=== PATIENT | male | born 1970 | race Caucasian/White ===

== ENCOUNTER 2019-06-11 08:50 | Outpatient (CLI) | payer OTHER, SELFPAY ==
--- NOTE | 2019-06-11 08:59 | XR_ITS ---
WS: [id number] XR cervical spine 3V* [id number] REASON FOR EXAM: UPPER BACK NECK PAIN FINDINGS: The disc spaces and vertebral bodies are normal. The lamina, pedicles, spinous processes, are all normal. The joints of [place] are normal. The odontoid process was normal. XR/XR cervical spine 3V* [id number] IMPRESSION: Normal cervical spine series.
--- NOTE | 2019-06-11 08:59 | XR_ITS ---
WS: [id number] XR thoracic spine 3V* [id number] REASON FOR EXAM: UPPER BACK NECK PAIN FINDINGS: Mild compression deformity of the L1 vertebra. The remaining vertebral bodies and disc spaces are normal. The cervicothoracic junction was normal. The remaining lamina, pedicles, spinous processes are normal. XR/XR thoracic spine 3V* [id number] IMPRESSION: Normal thoracic spine series Mild compression deformity of L1 vertebra.
== END 2019-06-11 08:51 | disposition home or self-care (01) ==
PROVIDERS: Family Provider Family Medicine
DX: M54.6 Pain in thoracic spine (principal); M54.2 Cervicalgia; M48.54XA Collapsed vertebra, not elsewhere classified, thoracic region, initial encounter for fracture
CPT/HCPCS: 72040; 72072

== ENCOUNTER 2019-09-22 10:39 | Day surgery (SDC) | payer OTHER, SELFPAY ==
[2019-09-21 17:16] VITALS: BMI 28.2
[2019-09-22] VITALS (7 sets, daily range): BP systolic 136–153; BP diastolic 84–104; PULSE 67–104; RESP 14–24; TEMP 36.3–36.6; O2SAT 97–100
--- NOTE | 2019-09-22 11:07 | W.PM.OPSUD ---
Surgery/Procedure H&P Update DATE OF PROCEDURE: September 22, 2019 DATE H&P PERFORMED: 09/21/19 H&P UPDATE INFORMATION: I have reviewed H&P completed within last 30 days, I have examined patient prior to procedure and No changes to prior documentation PREOP DIAGNOSIS: Perianal abscess perianal abscess PLANNED PROCEDURE: Operation Date: 09/22/19 12:30 Proposed Procedures p Incision and drainage of perianal abscess 42614/L02.91(Not Applicable) - Milton Milton MD
[2019-09-22] MEDS: sodium chloride 0.9% 1,000 ML 100 ML IV (11:14)
--- NOTE | 2019-09-22 11:18 | P.ANESASSM_ITS ---
Pre-Anesthetic Assessment Pre-Anesthetic Assessment: Height/Weight: Height 1.88 m Weight 99.79 kg Temp Pulse Resp BP Pulse Ox 97.4 F L 104 H 18 140/104 99 09/22/19 10:57 09/22/19 10:57 09/22/19 10:57 09/22/19 10:57 09/22/19 10:57 Preop Diagnosis: Perianal abscess perianal abscess Proposed Procedure: Operation Date: 09/22/19 12:30 Proposed Procedures p Incision and drainage of perianal abscess 57593/L02.91(Not Applicable) - Milton Milton MD Last intake: Intake Last Liquid Date 09/21/19 Last Liquid Time 21:00 Last Solid Date 09/21/19 Last Solid Time 21:00 Social: Social History: Tobacco (2019 quit) and No alcohol Exam: Pre-Anes Outpt Exam: alert, oriented x 3, clear to auscultation bilaterally and regular rate & rhythm Airway: Submandibular: WNL Cervical ROM: WNL MP: 2 Dentition: Other (teeth ok) History/ROS: No significant history except as noted Pulmonary: Pulmonary: None reported CV/HEM: CV/HEM: None reported : : None reported Hepatic: Hepatic: None reported GI: GI: GERD (occ) Metabolic: Metabolic: Hyperlipidemia Musc/skel: Musc/skel: None reported Neuropsych: Neuropsych: None reported Anesthetic Plan: ASA status: 2 Anesthesia: Anesthesia Evaluation, General and MAC Risk of > 500 ml blood loss (7ml/kg in children): No Meds/Allergies Current Medications: Current Medications Generic Name Dose Route Start Last Admin Trade Name Freq PRN Reason Stop Dose Admin Sodium Chloride 1,000 mls @ 100 m ls/hr 09/22/19 08:00 09/22/19 11:14 Sodium Chloride 0.9% IV 09/23/19 07:59 100 mls/hr .Q10H FAVIAN Administration PFSH Anesthesia PFSH: Medical History Hypercholesterolemia Perianal abscess Surgical History H/O circumcision 2004 H/O lithotripsy H/O vasectomy Family History Father Cancer lymphoma Mother Cancer fallopian tubes Grandfather Cancer colon Denies family history of Diabetes CAD (coronary artery disease) Anesthesia complication Bleeding disorder Social History Smoking and tobacco status: never smoked Alcohol intake: never Lives independently: Yes Marital status: Single Current occupational status: employed History of recent travel: Yes (all over [place]) Data Anesthesia Cardiac Studies: No Data to Display
--- NOTE | 2019-09-22 11:40 | PM.OP ---
Operative Report Date of procedure: September 22, 2019 Pre-op Diagnosis: Perianal abscess Post-op diagnosis: same Procedure Done: Incision and drainage of perianal abscess Pathology: wound cultures Surgeon: Milton Milton Anesthesia: General Estimated blood loss (mL): 5 Condition: stable Disposition: PACU Procedure: The patient was taken to the operating room and placed under general anesthesia after IV antibiotic had been administered. The perineum was prepped and draped in a sterile manner. 0.5% Marcaine was infiltrated around the palpable abscess. Using 15 blade a 3 cm incision was made and the abscess cavity measured 4 x 4 cm. Loculations were taken down bluntly. Wound was irrigated saline and packed with quarter inch ribbon gauze and covered with ABDs. The patient was transferred to recovery room in stable condition.
--- NOTE | 2019-09-22 12:25 | SUR.PHASEI ---
1223 PATIENT TO PACU AT THIS TIME FROM OR. ORAL AIRWAY IN PLACE, SPO2 100% ON SIMPLE MASK AT 8L. PATIENT RESTING COMFORTABLE ON BED, NO DISTRESS NOTED.
--- NOTE | 2019-09-22 12:27 | SUR.PHASEI ---
1225 ORAL AIRWAY REMOVED AT THIS TIME. SPO2 100% ON SIMPLE MASK AT 8L.
--- NOTE | 2019-09-22 12:40 | SUR.PHASEI ---
1237 PATIENT TO OPS AT THIS TIME. A/OX3. TOLERATING ICE CHIPS.
[2019-09-22] MEDS: HYDROcodone-acetaminophen 5-325 mg Tablet 1 TAB PO (13:50)
== END 2019-09-22 13:49 | disposition home or self-care (01) ==
PROVIDERS: PCP Family Medicine; Visit Provider Surgery
PROC: (CPT 46050; principal; 2019-09-22 12:20)
DX: K61.0 Anal abscess (principal); K21.9 Gastro-esophageal reflux disease without esophagitis; E78.5 Hyperlipidemia, unspecified
CPT/HCPCS: 46050; 12345; 87070; 87075; 87077; 87186; 87205; J0690; J2250; J2704; J3010; J3490; J7030

== ENCOUNTER → 2021-03-01 09:32 | Outpatient (BNVA) | payer BC, SELFPAY | PROVIDERS: PCP Family Medicine; Visit Provider Nurse Practitioner Family | DX: Z20.822 Contact with and (suspected) exposure to COVID-19 (principal) | CPT/HCPCS: 87635 ==

== ENCOUNTER → 2021-06-29 08:11 | Outpatient (BNVA) | payer BC, SELFPAY | PROVIDERS: PCP Family Medicine; Visit Provider Nurse Practitioner Family | DX: Z20.822 Contact with and (suspected) exposure to COVID-19 (principal) | CPT/HCPCS: 87635 ==

== ENCOUNTER → 2022-11-08 12:30 | Outpatient (BNVA) | payer BC, SELFPAY | PROVIDERS: PCP Family Medicine; Visit Provider Registered Nurse Neonatal Intensive Care | DX: L29.3 Anogenital pruritus, unspecified (principal); B37.49 Other urogenital candidiasis | CPT/HCPCS: 81000; 87491; 87591; 87661 ==

== ENCOUNTER → 2023-06-06 16:16 | Outpatient (BNVA) | payer BC, SELFPAY | PROVIDERS: PCP Family Medicine | DX: R21 Rash and other nonspecific skin eruption (principal); L43.9 Lichen planus, unspecified | CPT/HCPCS: 86592; 86695; 86696; 86705; 86706; 86709; 86803; 87340; 87491; 87591 ==

== ENCOUNTER 2024-09-25 14:27 | Outpatient (CLI) | payer OTHER, SELFPAY ==
--- NOTE | 2024-09-25 14:36 | XR_ITS ---
WS: [id number] XR hand RT min 3V* [id number] REASON FOR EXAM: R22.31 - Localized swelling, mass and lump, right upper limb FINDINGS: No soft tissue mass identified. No soft tissue radiopaque foreign body identified. No fracture or focal bone lesion. No periosteal reaction or bone erosion. The joint spaces of the hand are intact and well preserved. XR/XR hand RT min 3V* [id number] IMPRESSION: No significant abnormality.
--- NOTE | 2024-09-25 14:36 | XR_ITS ---
WS: [id number] XR hand LT min 3V* [id number] REASON FOR EXAM: R22.32 - Localized swelling, mass and lump, left upper limb FINDINGS: No soft tissue mass identified. No soft tissue radiopaque foreign body. No fracture or focal bone lesion. No bone erosion or periosteal reaction. Minimal changes of osteoarthritis in the 3 joints of the thumb with mild joint space narrowing and subchondral sclerosis and minimal osteophytosis. XR/XR hand LT min 3V* [id number] IMPRESSION: Minimal osteoarthritis of the thumb without other significant abnormality.
== END 2024-09-25 14:28 | disposition home or self-care (01) ==
PROVIDERS: PCP Clinical Nurse Specialist Adult Health; Visit Provider Clinical Nurse Specialist Adult Health
DX: R22.31 Localized swelling, mass and lump, right upper limb (principal); R22.32 Localized swelling, mass and lump, left upper limb
CPT/HCPCS: 73130

== ENCOUNTER 2024-12-15 08:03 | Day surgery (SDC) | payer OTHER, SELFPAY ==
[2024-12-15 08:19] VITALS: BP 138/96; PULSE 69; RESP 18; TEMP 36.2; O2SAT 98; BMI 26.3
--- NOTE | 2024-12-15 08:31 | ANES.PREANE2 ---
Pre-Anesthetic Assessment Height/Weight: Height 1.88 m Weight 92.986 kg Temp Pulse Resp BP Pulse Ox O2 Del Method 97.1 F L 69 18 138/96 98 Room Air 12/15/24 08:19 12/15/24 08:19 12/15/24 08:19 12/15/24 08:19 12/15/24 08:19 12/15/24 08:19 Preop Diagnosis: screening Operation Date: 12/15/24 09:15 Proposed Procedures p Colonoscopy 50508 G0121 Z12.11(Not Applicable) - Payam Brock MD Familial anesthetic complications: none Was Beta Spencer taken within 24 hours: N/A Was Clonidine taken within 24 hours: N/A Last intake: Intake Last Liquid Date 12/14/24 Last Liquid Time 23:45 Last Solid Date 12/13/24 Last Solid Time 21:00 Social Tobacco (vapes) and No alcohol Exam alert, oriented x 3, clear to auscultation bilaterally and regular rate & rhythm Airway Submandibular: within normal limits Cervical ROM: within normal limits Mallampati: Class II Dentition: full Pulmonary None reported CV/HEM None reported BP 138/96 advised to monitor BP at home None reported Hepatic None reported GI None reported Metabolic Hyperlipidemia [facility] [place] None reported Neuropsych None reported Anesthetic Plan ASA status: 2 Anesthesia: MAC Medications/Allergies Home Medications ?Medication ?Instructions ?Recorded ?Confirmed ?Last Taken ?Type No Known Home Medications 04/03/23 12/09/24 Unknown History Allergies Allergy/AdvReac Type Severity Reaction Status Date / Time No Known Allergies Allergy Verified 12/09/24 08:17 [facility] Anesthesia Medical History Plantar fasciitis, bilateral Renal calculi Penile rash Lichen planus of penis H/O methicillin resistant Staphylococcus aureus infection Cellulitis and abscess of right leg Hypercholesterolemia Surgical History Status post incision and drainage (09/22/19) Perianal abscess 09/21/2019 H/O circumcision 2004 H/O vasectomy H/O lithotripsy Family History Father Cancer lymphoma Mother Cancer fallopian tubes Grandfather Cancer colon Denies family history of Diabetes CAD (coronary artery disease) Anesthesia complication Bleeding disorder Social History Smoking and tobacco/nicotine status: current every day tobacco/nicotine user (vape) e-cigarettes E-Cigarette Details: vaporizer device Alcohol intake: never Substance/Drug Use: never Lives independently: Yes Marital status: Number of children: 2 service: Yes Current occupational status: employed
--- NOTE | 2024-12-15 09:05 | W.PM.OPSFHP ---
Same Day Surgery H&P Indication for Procedure/HPI DATE OF PROCEDURE: December 15, 2024 CHIEF COMPLAINT/INDICATIONFOR SURGICAL PROCEDURE: screening colonoscopy PREOP DIAGNOSIS: screening colonoscopy PLANNED PROCEDURE: Operation Date: 12/15/24 09:15 Proposed Procedures p Colonoscopy 49894 G0121 Z12.11(Not Applicable) - Payam Brock MD Medications/Allergies* Home Medications ?Medication ?Instructions ?Recorded ?Confirmed ?Type No Known Home Medications 04/03/23 12/09/24 History Allergies/Adverse Reactions Allergy/AdvReac Type Severity Reaction Status Date / Time No Known Allergies Allergy Verified 12/09/24 08:17 Current Medications: Generic Name Dose Route Start Last Admin Trade Name Freq PRN Reason Stop Dose Admin Sodium Chloride 1,000 mls @ 15 mls/hr 12/15/24 08:08 12/15/24 08:36 Sodium Chloride 0.9% IV 12/16/24 08:07 15 mls/hr .Q24H PRN Administration COLONOSCOPY FLUIDS Pertinent History/Comorbid Conditions* Medical History (Updated 09/18/24 @ 16:38 by Alfred Lamb NP) Plantar fasciitis, bilateral Renal calculi Penile rash Lichen planus of penis H/O methicillin resistant Staphylococcus aureus infection Cellulitis and abscess of right leg Hypercholesterolemia Surgical History (Updated 04/03/23 @ 08:13 by Tobias Ramos MD) Status post incision and drainage (09/22/19) Perianal abscess 09/21/2019 H/O circumcision 2004 H/O vasectomy H/O lithotripsy Family History (Updated 09/21/19 @ 15:51 by Jacinda Espinosa LPN) Cancer Father lymphoma Mother fallopian tubes Grandfather colon Denies family history of Diabetes CAD (coronary artery disease) Anesthesia complication Bleeding disorder Social History Smoking and tobacco/nicotine status: current every day tobacco/nicotine user (vape) e-cigarettes E-Cigarette Details: vaporizer device Alcohol intake: never Substance/Drug Use: never Lives independently: Yes Marital status: Number of children: 2 service: Yes Current occupational status: employed Pertinent Exam Findings alert, oriented x 3, clear to auscultation bilaterally, regular rate & rhythm and procedure specific exam findings abdomen soft, nt, nd Recommendations Risks and benefits of procedure reviewed and Patient/family agree to proceed Surgery/Procedure today Coding Level of Care Code Acute Code for Chg Fwd
--- NOTE | 2024-12-15 09:14 | PC.NURSE ---
[facility] [id number]
[2024-12-15 09:34] VITALS: BP 110/85; PULSE 86; RESP 14; TEMP 36.4; O2SAT 99
[2024-12-15 09:49] VITALS: BP 111/85; PULSE 75; RESP 16; O2SAT 100
--- NOTE | 2024-12-15 10:10 | ANE.PACU2 ---
Inpatient post-anesthesia follow up: Airway intact: Yes Vital signs: Temperature 97.6 F Pulse Rate 75 Respiratory Rate 16 Blood Pressure 111/85 Pulse Oximetry 100 Oxygen Delivery Me thod Room Air Oxygen Flow Rate Fraction of Inspir ed Oxygen Hydration adequate: Yes Nausea and vomiting: No Pain level: 1 Mental status: Baseline
== END 2024-12-15 10:10 | disposition home or self-care (01) ==
PROVIDERS: PCP Clinical Nurse Specialist Adult Health; Visit Provider Student in an Organized Health Care Education/Training Program
PROC: 0DJD8ZZ Inspection of Lower Intestinal Tract, Via Natural or Artificial Opening Endoscopic (ICD-10-PCS; CPT 45378; principal; 2024-12-15 09:15)
DX: Z12.11 Encounter for screening for malignant neoplasm of colon (principal); K57.30 Diverticulosis of large intestine without perforation or abscess without bleeding; D12.8 Benign neoplasm of rectum; E78.00 Pure hypercholesterolemia, unspecified; F17.290 Nicotine dependence, other tobacco product, uncomplicated; E78.5 Hyperlipidemia, unspecified
CPT/HCPCS: 45385; 88305; J2704; J3490; J7030